=== PATIENT | female | born 1995 | race Two or more races ===

== ENCOUNTER 2021-02-22 18:40 | Emergency (ER) | payer MEDICAID, OTHER ==
[~2021-02-22] VITALS: Ht 157.5 cm; Wt 51.7 kg
[2021-02-22 19:26] VITALS: BP 144/75
== END 2021-02-22 22:15 | disposition home or self-care (01) ==
LOC: ER 18:44
DX: F12.10 Cannabis abuse, uncomplicated (principal); F15.10 Other stimulant abuse, uncomplicated; F14.10 Cocaine abuse, uncomplicated; F11.10 Opioid abuse, uncomplicated; E86.0 Dehydration; I10 Essential (primary) hypertension; R55 Syncope and collapse; F17.210 Nicotine dependence, cigarettes, uncomplicated; Z59.0 Homelessness
CPT/HCPCS: 93005